=== PATIENT | female | born 1995 | race Caucasian/White ===

== ENCOUNTER → 2021-06-10 07:59 | Outpatient (CLI) | payer OTHER, MEDICAID, SELFPAY ==
[2021-06-10 09:11] LABS: Appearance Urine UA SL CLOUDY; Bilirubin Urine UA NEGATIVE (NEGATIVE); Color Urine UA YELLOW; Glucose Urine UA TRACE g/dL (Negative); Ketones Urine UA NEGATIVE (NEGATIVE); Leukocyte Esterase Urine UA 1+ (NEGATIVE); Nitrite Urine UA NEGATIVE (Negative); Occult Blood Urine UA 1+ (Negative); Protein Urine UA 1+ (Negative); Urobilinogen Urine UA 0.2 E.U./dL (0.2)
[2021-06-10 09:42] LABS: Bacteria Urine Many (>30); RBC Urine 1-5/HPF (0-5/HPF); Squamous Epithelial Cell Urine 10-30 /HPF (0-5/HPF); WBC Urine 5-10/HPF (0-5/HPF)
[2021-06-10 10:15] LABS: Add Manual Diff / Slide Review NO; Basophils Absolute Auto 0 /uL (0-100); Basophils Percent Auto 0.3 % (0-2); Eosinophils Absolute Auto 100 /uL (0-450); Eosinophils Percent Auto 0.6 % (2-4); Hematocrit 35.2 % (36-46); Hemoglobin 11.6 g/dL (12.0-16.0); Lymphocytes Absolute Auto 1500 /uL (1100-4500); Lymphocytes Percent Auto 14.1 % (25-40); Mean Corpuscular Volume 87.8 fL (80-100); Monocytes Absolute Auto 500 /uL (0-900); Monocytes Percent Auto 4.4 % (3-14); Neutrophils Absolute Auto 8600 /uL (1500-7000); Neutrophils Percent Auto 80.6 % (50-75); Platelet Count 197 X10^3/uL (150-400); Red Cell Distribution Width 13.5 % (11.6-14.8); White Blood Cell Count 10.6 X10^3/uL (4.5-11.0)
[2021-06-10 10:48] LABS: GTT (PREG) 1 Hour PP 50gm Dose 143 mg/dL (76-139)
[2021-06-10 17:56] LABS: Hepatitis B Surface Antigen NEGATIVE s/c (NEGATIVE); Rubella Antibody IgG 97.8 IU/mL (>15)
[2021-06-10 18:54] LABS: HIV 1 & 2 Ab/Ag 4th Gen Combo NEGATIVE (NEGATIVE); Hep C Virus Ab w/Reflex Quant NEGATIVE s/c (NEGATIVE)
[2021-06-11 04:21] LABS: RPR Screen Non Reactive (Non Reactive)
[2021-06-11 05:42] LABS: Varicella IgG Antibody <135 index (Immune >165)
== END ==
PROVIDERS: PCP Family Medicine; Referring Provider Family Medicine; Visit Provider Family Medicine
DX: Z34.90 Encounter for supervision of normal pregnancy, unspecified, unspecified trimester (principal)
CPT/HCPCS: 36415; 80055; 81003; 81015; 82950; 86787; 86803; 86850; 86900; 86901; 87086; 87389

== ENCOUNTER → 2021-06-11 07:41 | Outpatient (CLI) | payer OTHER, MEDICAID, SELFPAY ==
[2021-06-11 08:41] LABS: Glucose Fasting Gestational 91 mg/dL (76-95)
[2021-06-11 10:06] LABS: Glucose 1 Hour Gest 162 mg/dL (76-180)
[2021-06-11 10:32] LABS: Glucose 2 Hour Gest 133 mg/dL (76-155)
[2021-06-11 11:02] LABS: Glucose Tol Interp,Gestational INTERPRETATION
[2021-06-11 11:44] LABS: Glucose 3 Hour Gest 138 mg/dL (76-140)
== END ==
PROVIDERS: PCP Family Medicine; Referring Provider Family Medicine; Visit Provider Family Medicine
DX: Z34.90 Encounter for supervision of normal pregnancy, unspecified, unspecified trimester (principal); R73.09 Other abnormal glucose
CPT/HCPCS: 36415; 82951; 82952

== ENCOUNTER → 2021-06-17 12:42 | Outpatient (CLI) | payer OTHER, MEDICAID, SELFPAY ==
[2021-06-17 13:41] LABS: Add Manual Diff / Slide Review NO; Basophils Absolute Auto 0 /uL (0-100); Basophils Percent Auto 0.3 % (0-2); Eosinophils Absolute Auto 100 /uL (0-450); Eosinophils Percent Auto 0.8 % (2-4); Hematocrit 33.6 % (36-46); Hemoglobin 11.2 g/dL (12.0-16.0); Lymphocytes Absolute Auto 1900 /uL (1100-4500); Lymphocytes Percent Auto 17.4 % (25-40); Mean Corpuscular HGB Conc 33.5 % (30-36); Mean Corpuscular Hemoglobin 29.2 PG (26-34); Mean Corpuscular Volume 87.2 fL (80-100); Monocytes Absolute Auto 1000 /uL (0-900); Monocytes Percent Auto 8.9 % (3-14); Neutrophils Absolute Auto 7800 /uL (1500-7000); Neutrophils Percent Auto 72.6 % (50-75); Platelet Count 196 X10^3/uL (150-400); Red Blood Cell Count 3.86 X10^6/uL (4.0-5.2); Red Cell Distribution Width 13.3 % (11.6-14.8); White Blood Cell Count 10.8 X10^3/uL (4.5-11.0)
[2021-06-17 13:59] LABS: Alanine Aminotransferase 12 IU/L (<35); Albumin 3.7 g/dL (3.5-5.0); Albumin Globulin Ratio 1.3 (1.0-2.8); Alkaline Phosphatase 103 U/L (38-126); Aspartate Aminotransferase 21 IU/L (14-36); BUN Creatinine Ratio 14.6 (6-22); Bilirubin Total 0.3 mg/dL (0.2-1.3); Blood Urea Nitrogen 7 mg/dL (7-17); Calcium 9.3 mg/dL (8.4-10.2); Carbon Dioxide 26 mmol/L (22-32); Chloride 106 mmol/L (98-107); Estimated Glomerular Filt Rate > 60.0 mL/min (>60); Globulin 2.9 g/dL (1.7-4.1); Glucose 68 mg/dL (70-100); HEMOLYSIS < 15 (0-50); Potassium 4.2 mmol/L (3.4-5.1); Sodium 136 mmol/L (137-145); Total Protein 6.6 g/dL (6.3-8.2); Uric Acid 4.2 mg/dL (2.5-6.2)
[2021-06-17 14:20] LABS: Creatinine Urine Random 149.5 mg/dL
[2021-06-17 14:23] LABS: Protein (Total) Urine Random < 5 mg/dL (0-12); Protein Creatinine Ratio Urine 0.03 GRAM/24H
== END ==
PROVIDERS: PCP Family Medicine; Referring Provider Family Medicine; Visit Provider Family Medicine
DX: O09.299 Supervision of pregnancy with other poor reproductive or obstetric history, unspecified trimester (principal)
CPT/HCPCS: 36415; 80053; 82570; 84156; 84550; 85025

== ENCOUNTER → 2021-06-19 10:57 | Outpatient (CLI) | payer OTHER, MEDICAID, SELFPAY ==
[2021-06-19 16:07] LABS: Collection Time Urine 24 Hours; Protein (Total) Urine Random 11 mg/dL (0-12); Total Protein 24 Hour Urine 275 mg/day (42-225); Total Volume Urine 2500 mL
== END ==
PROVIDERS: PCP Family Medicine; Referring Provider Family Medicine; Visit Provider Family Medicine
DX: O09.299 Supervision of pregnancy with other poor reproductive or obstetric history, unspecified trimester (principal)
CPT/HCPCS: 84156

== ENCOUNTER → 2021-07-08 11:36 | Outpatient (CLI) | payer OTHER, MEDICAID, SELFPAY ==
[2021-07-09 16:16] LABS: Strep Grp B PCR NEG for Grp B Strep
--- NOTE | 2021-07-11 23:38 | P.TNLD_ITS ---
Visit Information Visit Information Date of evaluation: 07/11/21 Primary OB Provider: Aracelis Jack Reason for Evaluation: Yes non-stress test Comments/Additional reasons for admission: This patient is a 26yo P2 @37 weeks gestation with a history of preeclampsia, sent to L&D after calling after hours with a headache and RUQ pain. Reports good movement, contractions 10x daily, no LOF or VB, no visual changes. Vital Signs Vital Signs: 125/56, HR 96 PFSH Medical History (Updated 06/15/21 @ 22:51 by Yvonne Eid) Anemia (~2004) Anxiety (~2017) Asthma (~2002) Chronic back pain (~2017) Depression Hearing loss Hypertension affecting Preeclampsia Surgical History (Updated 06/15/21 @ 22:51 by Yvonne Eid) Anesthesia Encounter for cholecystectomy (~02/11/19) History of dilatation and curettage (~10/02/20) History of wisdom tooth extraction (~06/02/18) Family History (Updated 06/15/21 @ 22:52 by Yvonne Eid) Mother Fibrocystic breast Grandmother Hypertension Grandfather Cancer Social History marital status: unmarried,living together number of children: 2 household members: significant other and children lives independently: Yes pets and animals: Yes (cat - aware of Toxoplasmosis) occupational status: unemployed current occupational exposures/hazards: No seatbelt use: always water heater temp set < 120 deg: Yes working smoke detector in home: Yes fire extinguisher in home: Yes carbon monox detector in home: Yes firearms in home: No do you feel safe at home: Yes Smoking Status: Former smoker second hand exposure: No alcohol intake: former substance use type: does not use well-balanced diet: daily or most days daily servings fruits/ve-4 caffeine: Yes (under 160 per day) Type(s) of exercise: walking and normal ROM and activity (2 small cheildren) Review of Systems Constitutional Constitutional: Reports system reviewed and no additional complaints, except as documented Evaluation Evaluation Baseline heart rate: 125 Variability: Average (6-10) monitor accelerations: Present Monitor Decelerations: Absent Diagnosis, Plan/Disposition Plan/Disposition Plan: Patient normotensive, preeclampsia labs well within normal limits and headache resolved. status reassuring, and RUQ pain is over rib cage. Patient discharged home with [facility] and labor precautions, to follow up in AM with primary OB. OB Disposition: home
== END ==
PROVIDERS: PCP Family Medicine; Visit Provider Family Medicine
DX: Z3A.36 36 weeks gestation of pregnancy (principal)
CPT/HCPCS: 87653

== ENCOUNTER 2021-07-11 22:07 | Outpatient (CLI) | payer OTHER, MEDICAID, SELFPAY ==
[2021-07-11 22:44] LABS: Add Manual Diff / Slide Review NO; Basophils Absolute Auto 100 /uL (0-100); Basophils Percent Auto 0.6 % (0-2); Eosinophils Absolute Auto 100 /uL (0-450); Eosinophils Percent Auto 0.7 % (2-4); Hematocrit 33.7 % (36-46); Hemoglobin 11.3 g/dL (12.0-16.0); Lymphocytes Absolute Auto 2300 /uL (1100-4500); Lymphocytes Percent Auto 20.8 % (25-40); Mean Corpuscular HGB Conc 33.7 % (30-36); Mean Corpuscular Hemoglobin 29.2 PG (26-34); Mean Corpuscular Volume 86.7 fL (80-100); Monocytes Absolute Auto 800 /uL (0-900); Monocytes Percent Auto 7.4 % (3-14); Neutrophils Absolute Auto 7700 /uL (1500-7000); Neutrophils Percent Auto 70.5 % (50-75); Platelet Count 189 X10^3/uL (150-400); Red Blood Cell Count 3.89 X10^6/uL (4.0-5.2); Red Cell Distribution Width 13.5 % (11.6-14.8)
[2021-07-11 22:53] LABS: Aspartate Aminotransferase 21 IU/L (14-36); BUN Creatinine Ratio 18.6 (6-22); Blood Urea Nitrogen 8 mg/dL (7-17); Estimated Glomerular Filt Rate > 60.0 mL/min (>60); Uric Acid 4.6 mg/dL (2.5-6.2)
[2021-07-11 22:57] LABS: Creatinine Urine Random 196.8 mg/dL; Protein (Total) Urine Random < 5 mg/dL (0-12); Protein Creatinine Ratio Urine 0.02 GRAM/24H
== END 2021-07-11 23:27 | disposition home or self-care (01) ==
LOC: OB 07-14 12:37
PROVIDERS: PCP Family Medicine; Referring Provider Obstetrics & Gynecology; Visit Provider Obstetrics & Gynecology
DX: O26.893 Other specified pregnancy related conditions, third trimester (principal); R03.0 Elevated blood-pressure reading, without diagnosis of hypertension; R10.11 Right upper quadrant pain; R51.9 Headache, unspecified; Z3A.37 37 weeks gestation of pregnancy
CPT/HCPCS: 36415; 59025; 82570; 84156; 84450; 84550; 85025; G0378; G0379

== ENCOUNTER 2021-07-30 19:25 | Observation (INO) | payer OTHER, MEDICAID, SELFPAY ==
--- NOTE | 2021-07-30 20:18 | P.TNLD_ITS ---
Visit Information Visit Information Date of evaluation: 07/30/21 Primary OB Provider: Deb Mccloud On-call OB Provider: Ishmael Varela Reason for Evaluation: Yes other Comments/Additional reasons for admission: Keira is a 26 yo ANGEL 08/01/2021 @ 39+5 wks EGA who noted blood pressures in the range of 140/90 at home especially when sitting or standing and was asked to come to the [facility] for evaluation. Patient has a postero-basilar headache which is not unusual but she denies any visual disturbances, pounding headache, or right upper quadrant pain. Vital Signs Vital Signs: BP: 118/69; 129/73; 122/65 supine BP: 140's/90's sitting and standing [facility] Medical History (Updated 07/30/21 @ 22:01 by Ishmael Varela MD) Anemia (~2004) Anxiety (~2017) Asthma (~2002) Chronic back pain (~2017) Depression Hearing loss Hypertension affecting Preeclampsia Surgical History (Updated 06/15/21 @ 22:51 by Yvonne Eid) Anesthesia Encounter for cholecystectomy (~02/11/19) History of dilatation and curettage (~10/02/20) History of wisdom tooth extraction (~06/02/18) Family History (Updated 06/15/21 @ 22:52 by Yvonne Eid) Mother Fibrocystic breast Grandmother Hypertension Grandfather Cancer Social History marital status: unmarried,living together number of children: 2 household members: significant other and children lives independently: Yes pets and animals: Yes (cat - aware of Toxoplasmosis) occupational status: unemployed current occupational exposures/hazards: No seatbelt use: always water heater temp set < 120 deg: Yes working smoke detector in home: Yes fire extinguisher in home: Yes carbon monox detector in home: Yes firearms in home: No do you feel safe at home: Yes Smoking Status: Former smoker second hand exposure: No alcohol intake: former substance use type: does not use well-balanced diet: daily or most days daily servings fruits/ve-4 caffeine: Yes (under 160 per day) Type(s) of exercise: walking and normal ROM and activity (2 small cheildren) Objective Labs Result Diagrams: 07/30/21 20:46 07/30/21 20:46 Evaluation Evaluation Baseline heart rate: 130 Variability: Moderate (11-25) monitor accelerations: Present Monitor Decelerations: Absent Category of Tracing: Reactive Status: Category l Diagnosis, Plan/Disposition Final Diagnosis (1) History of pre-eclampsia in prior , currently : Status: Acute (2) Hypertension affecting : Status: Acute Problem details: BP's elevate primarily with sitting/standing (3) : Status: Acute Plan/Disposition Plan: At present the patient's blood pressure here (supine) remains in the normal range and there is no laboratory evidence preeclampsia. Patient has an appointment with Dr. Mccloud or in her office tomorrow morning and at that time will discuss induction strategies. Patient tentatively added to the induction schedule to come in PM for 07/31 for ripening and induction 08/01/2021. Counselled re: signs/symptoms of or severe GHTN/PEC. Patient will go to BR overnight and report any blood pressures at or higher than 150/100 or signs/symptoms of severe GHTN/PEC. OB Disposition: home
[2021-07-30 21:03] LABS: Add Manual Diff / Slide Review NO; Basophils Absolute Auto 0 /uL (0-100); Basophils Percent Auto 0.4 % (0-2); Eosinophils Absolute Auto 100 /uL (0-450); Eosinophils Percent Auto 0.5 % (2-4); Hematocrit 33.7 % (36-46); Hemoglobin 11.5 g/dL (12.0-16.0); Lymphocytes Absolute Auto 1900 /uL (1100-4500); Lymphocytes Percent Auto 17.2 % (25-40); Mean Corpuscular HGB Conc 34.3 % (30-36); Mean Corpuscular Hemoglobin 29.7 PG (26-34); Mean Corpuscular Volume 86.5 fL (80-100); Monocytes Absolute Auto 900 /uL (0-900); Monocytes Percent Auto 7.7 % (3-14); Neutrophils Absolute Auto 8400 /uL (1500-7000); Neutrophils Percent Auto 74.2 % (50-75); Platelet Count 185 X10^3/uL (150-400); Red Blood Cell Count 3.89 X10^6/uL (4.0-5.2); Red Cell Distribution Width 13.5 % (11.6-14.8); White Blood Cell Count 11.3 X10^3/uL (4.5-11.0)
[2021-07-30 21:09] LABS: Alanine Aminotransferase 13 IU/L (<35); Albumin 3.8 g/dL (3.5-5.0); Albumin Globulin Ratio 1.1 (1.0-2.8); Alkaline Phosphatase 139 U/L (38-126); Aspartate Aminotransferase 23 IU/L (14-36); BUN Creatinine Ratio 15.7 (6-22); Bilirubin Total 0.3 mg/dL (0.2-1.3); Blood Urea Nitrogen 8 mg/dL (7-17); Calcium 9.2 mg/dL (8.4-10.2); Carbon Dioxide 22 mmol/L (22-32); Chloride 107 mmol/L (98-107); Estimated Glomerular Filt Rate > 60 mL/min (>60); Globulin 3.4 g/dL (1.7-4.1); Glucose 95 mg/dL (70-100); HEMOLYSIS < 15 (0-50); Potassium 3.8 mmol/L (3.4-5.1); Sodium 137 mmol/L (137-145); Total Protein 7.2 g/dL (6.3-8.2); Uric Acid 4.9 mg/dL (2.5-6.2)
[2021-07-30 21:15] LABS: Creatinine Urine Random 176.8 mg/dL; Protein (Total) Urine Random 7 mg/dL (0-12); Protein Creatinine Ratio Urine 0.03 GRAM/24H
== END 2021-07-30 22:00 | disposition home or self-care (01) ==
LOC: LABOR 19:28
PROVIDERS: Admitting Provider Obstetrics & Gynecology; PCP Family Medicine; Referring Provider Obstetrics & Gynecology; Visit Provider Obstetrics & Gynecology
DX: O13.3 Gestational [pregnancy-induced] hypertension without significant proteinuria, third trimester (principal); Z3A.39 39 weeks gestation of pregnancy
CPT/HCPCS: 36415; 59025; 59050; 80053; 82570; 84156; 84550; 85025; G0378; G0379

== ENCOUNTER 2021-07-31 19:02 | Inpatient (IN) | payer OTHER, MEDICAID, SELFPAY ==
[2021-07-31 20:22] LABS: Add Manual Diff / Slide Review NO; Basophils Absolute Auto 0 /uL (0-100); Basophils Percent Auto 0.4 % (0-2); Eosinophils Absolute Auto 100 /uL (0-450); Eosinophils Percent Auto 0.7 % (2-4); Hematocrit 32.9 % (36-46); Hemoglobin 11.1 g/dL (12.0-16.0); Lymphocytes Absolute Auto 1700 /uL (1100-4500); Lymphocytes Percent Auto 18.9 % (25-40); Mean Corpuscular HGB Conc 33.6 % (30-36); Mean Corpuscular Hemoglobin 29.5 PG (26-34); Mean Corpuscular Volume 87.8 fL (80-100); Monocytes Absolute Auto 800 /uL (0-900); Monocytes Percent Auto 9.1 % (3-14); Neutrophils Absolute Auto 6400 /uL (1500-7000); Neutrophils Percent Auto 70.9 % (50-75); Platelet Count 184 X10^3/uL (150-400); Red Blood Cell Count 3.74 X10^6/uL (4.0-5.2); Red Cell Distribution Width 13.4 % (11.6-14.8); White Blood Cell Count 9.1 X10^3/uL (4.5-11.0)
[2021-07-31 20:31] LABS: Alanine Aminotransferase 15 IU/L (<35); Albumin 3.7 g/dL (3.5-5.0); Albumin Globulin Ratio 1.2 (1.0-2.8); Alkaline Phosphatase 130 U/L (38-126); Aspartate Aminotransferase 27 IU/L (14-36); Bilirubin Total 0.3 mg/dL (0.2-1.3); Blood Urea Nitrogen 8 mg/dL (7-17); Carbon Dioxide 22 mmol/L (22-32); Chloride 108 mmol/L (98-107); Estimated Glomerular Filt Rate > 60 mL/min (>60); Globulin 3.2 g/dL (1.7-4.1); Glucose 96 mg/dL (70-100); HEMOLYSIS < 15 (0-50); Potassium 3.7 mmol/L (3.4-5.1); Sodium 137 mmol/L (137-145); Total Protein 6.9 g/dL (6.3-8.2)
[2021-07-31 20:51] LABS: Creatinine Urine Random 205.8 mg/dL; Protein (Total) Urine Random 5 mg/dL (0-12); Protein Creatinine Ratio Urine 0.02 GRAM/24H
[2021-07-31 21:07] LABS: COVID19 -Nasal RAPID Negative (Negative)
[2021-07-31] MEDS: ACETAMINOPHEN 325 MG TABLET 650 MG PO (22:10)
[2021-07-31 22:48] VITALS: BP 124/64
--- NOTE | 2021-08-01 04:26 | P.HPOB_ITS ---
OB HPI Date/Time Date of admission: 07/31/21 Date Patient Seen: 08/01/21 Time Patient Seen: 05:52 History of Present Condition Chief complaint: states induction ANGEL Calculator Estimated Delivery Date Method Current WG Current Estimate 08/01/21 Manual 40w 0d Final ANGEL - AURELIO Other Estimates 08/01/21 Ultrasound #1 40w 0d 07/22/21 Ultrasound #2 41w 3d Estimated Gestational Age (weeks): 40w0d : 4 Para: 2 Narrative: Pt is a 26yo at 40w0d who presented for IOL for elevated blood pressures. The pt reports that her blood pressures at home have been more elevated at home recently, up to the 150s/90s. She has also had a persistent headache since last evening and worsening edema in her legs and hands. The headache has resolved this morning. She denies any RUQ pain or significant vision changes. She denies any vaginal bleeding, contractions, or LOF. Her baby has been moving regularly. The pt was late to care, initiating in the third trimester. She had pre-eclampsia in her first . She was not on Aspirin during her due to her late presentation to care. care: limited care, initiated at week # (33) and pounds weight gain (38) Dating criteria OB: based on 1st trimester US only Ultrasounds: normal 1st trimester US and normal mid trimester US Obstetrical complications: none Medical complications OB: none Indications Indication for induction OB: gestational HTN/pre-eclampsia Preadmission Labs Last OB Lab Results: Blood Type O Positive 07/31/21 22:45 07/31/21 Antibody Screen Negative 07/31/21 22:45 07/31/21 Hematocrit 32.9 % (36-46) L 07/31/21 20:06 07/31/21 Hemoglobin 11.1 g/dL (12.0-16.0) L 07/31/21 20:06 07/31/21 Hepatitis B Surface Antigen Negative s/c (NEGATIVE) 06/10/21 09:16 06/10/21 Hepatitis C Antibody Negative s/c (NEGATIVE) 06/10/21 09:16 06/10/21 Rubella Antibody 97.8 IU/mL (>15) 06/10/21 09:16 06/10/21 Varicella-Zoster IgG Antibody <135 index (Immune >165) L 06/10/21 09:16 06/10/21 Glucose 1 Hour 143 mg/dL (76-139) H 06/10/21 09:16 06/10/21 Group B Streptococcus (PCR) Neg for grp b strep 07/08/21 11:36 07/08/21 Glucose Tolerance Testing: Fasting (91), 1 hr (162), 2 hr (133) and 3 hr (138) -: Urine: negative External Labs -: Urine: negative Prior (ies) Past Pregnancies Del. Date GA/Weeks Labor Lgth Wt Sex Route Outcome Anesthesia Place Delv Breastfeed Preg Comp Name 08/03/17 40 48 7 lb 2 oz Female vaginal live - full term epidu ral [facility] 2 mo pre-eclampsia Aria 03/22/20 40 29 8 lb 7 oz Female vaginal live - full ter m epidural [place] 14 mon [place] 10/02/20 9 spontaneous spontaneous Delivery Date: 08/03/17 Last Updated by: Ayala Jaramillo R.N. Lip tie, tongue tie, sacral dimple Delivery Date: 03/22/20 Last Updated by: Ayala Jaramillo R.N. [facility] - OP, Induced Delivery Date: 10/02/20 Last Updated by: Ayala Jaramillo R.N. D & C Evaluation Evaluation Baseline heart rate: 120 Variability: Moderate (11-25) monitor accelerations: Present Monitor Decelerations: Absent Category of Tracing: Reactive Dilation (cm): 2.5 Effacement (%): 30 Dilation: 1-2 cm Effacement: 0-30% station: -2 Position of cervix: anterior Consistency: soft Shannon score: 6 [facility] Medical History (Updated 08/01/21 @ 05:30 by Deb Mccloud MD) Anemia (~2004) Anxiety (~2017) Asthma (~2002) Chronic back pain (~2017) Depression Hearing loss Hypertension affecting Preeclampsia Surgical History (Updated 06/15/21 @ 22:51 by Yvonne Eid) Anesthesia Encounter for cholecystectomy (~02/11/19) History of dilatation and curettage (~10/02/20) History of wisdom tooth extraction (~06/02/18) Family History (Updated 06/15/21 @ 22:52 by Yvonne Eid) Mother Fibrocystic breast Grandmother Hypertension Grandfather Cancer Social History marital status: unmarried,living together number of children: 2 household members: significant other and children lives independently: Yes pets and animals: Yes (cat - aware of Toxoplasmosis) occupational status: unemployed current occupational exposures/hazards: No seatbelt use: always water heater temp set < 120 deg: Yes working smoke detector in home: Yes fire extinguisher in home: Yes carbon monox detector in home: Yes firearms in home: No do you feel safe at home: Yes Smoking Status: Former smoker second hand exposure: No alcohol intake: former substance use type: does not use well-balanced diet: daily or most days daily servings fruits/ve-4 caffeine: Yes (under 160 per day) Type(s) of exercise: walking and normal ROM and activity (2 small cheildren) Meds Home Medications and Allergies Home Medications Medication Instructions Recorded Confirmed Type cholecalciferol (vitamin D3) 10 #0 06/17/17 07/31/21 History mcg (400 unit) capsule (Vitamin D3) ferrous sulfate 325 mg (65 mg #0 06/17/17 07/31/21 History iron) tablet (Iron (ferrous sulfate)) vitamin-ferrous fumarate #0 06/17/17 07/31/21 History 65 mg iron-folic acid 1 mg capsule (Mynatal) Allergies Allergy/AdvReac Type Severity Reaction Status Date / Time No Known Allergies Allergy Uncoded 07/31/21 09:36 OB Exam Narrative Exam Narrative: Gen: NAD, sitting comfortably in bed, appears well CV: RRR, no murmurs Resp: clear to auscultation bilaterally Abd: soft, nontender, gravid Ext: 1+ edema bilateral LE Neuro: no clonus, 1+ patellar reflexes Objective Labs Result Diagrams: 07/31/21 20:06 07/31/21 20:06 Labs: Laboratory Results - last 24 hr 07/31/21 07/31/21 07/31/21 20:00 20:06 20:06 WBC 9.1 RBC 3.74 L Hgb 11.1 L Hct 32.9 L MCV 87.8 MCH 29.5 MCHC 33.6 RDW 13.4 Plt Count 184 Neut % (Auto) 70.9 Lymph % (Auto) 18.9 L [place] % (Auto) 9.1 Eos % (Auto) 0.7 L Baso % (Auto) 0.4 Neut # (Auto) 6400 Lymph # (Auto) 1700 [place] # (Auto) 800 Eos # (Auto) 100 Baso # (Auto) 0 Sodium Potassium Chloride Carbon Dioxide BUN Creatinine Estimated GFR BUN/Creatinine Ratio Glucose Calcium Total Bilirubin AST ALT Alkaline Phosphatase Total Protein Albumin Globulin Albumin/Globulin Ratio U Random Total Protein Urine Creatinine Protein/Creatinin Ratio SARS-CoV-2 (PCR) Negative Blood Type O Positive Antibody Screen Negative 07/31/21 07/31/21 07/31/21 20:06 20:15 22:45 WBC RBC Hgb Hct MCV MCH MCHC RDW Plt Count Neut % (Auto) Lymph % (Auto) [place] % (Auto) Eos % (Auto) Baso % (Auto) Neut # (Auto) Lymph # (Auto) [place] # (Auto) Eos # (Auto) Baso # (Auto) Sodium 137 Potassium 3.7 Chloride 108 H Carbon Dioxide 22 BUN 8 Creatinine 0.57 Estimated GFR > 60 BUN/Creatinine Ratio 14.0 Glucose 96 Calcium 9.0 Total Bilirubin 0.3 AST 27 ALT 15 Alkaline Phosphatase 130 H Total Protein 6.9 Albumin 3.7 Globulin 3.2 Albumin/Globulin Ratio 1.2 U Random Total Protein 5 Urine Creatinine 205.8 Protein/Creatinin Ratio 0.02 SARS-CoV-2 (PCR) Blood Type O Positive Antibody Screen Negative Assessment and Plan Assessment and Plan Assessment and Plan narrative: Pt is a 26yo at 40w0d who presented for IOL due to rising BPs/gestational hypertension in the setting of hx of pre-eclampsia with her first child. BPs since admission have remained in acceptable range, however due to hx will proceed with IOL. Pt was not on Aspirin during due to late presentation to care. Pt with a persistent headache. Admission labs normal without evidence pre-eclampsia/HELLP. GBS negative, Rh positive. Shannon score currently 6. - Expectant management, anticipate - FHT reassuring overnight - Continue to monitor BPs closely - Due to staffing overnight, unable to start IOL. Plan for cervidil when able b ased on staffing.
[2021-08-01] MEDS: DINOPROSTONE VAG (CERVIDIL) 10 MG VAG (10:36)
--- NOTE | 2021-08-01 11:32 | P.PNOB_ITS ---
Date/Time Date Patient Seen: 08/01/21 Time Patient Seen: 11:32 Pain Control Pain control: tolerating well Status status: Category l Heart Rate Baseline: 130 Monitor Accelerations: Present Monitor Decelerations: Absent Monitor Variability: Moderate Assessment and Plan Comments: Pt is a 26yo at 40w0d who presented for IOL due to rising BPs/gestational hypertension in the setting of hx of pre-eclampsia with her first child.? BPs remain in good range. Pt was not on Aspirin during due to late presentation to care.? Admission labs normal without evidence pre- eclampsia/HELLP.? GBS negative, Rh positive.? Shannon score 6. - Expectant management, anticipate - FHT reassuring - Continue to monitor BPs closely - Cervidil place at 10:36am. Will remain in place for maximum 12 hrs - Desires epidural when in active labor - GBS negative, no antibiotic prophylaxis indicated
[2021-08-01] MEDS: ACETAMINOPHEN 325 MG TABLET 650 MG PO (13:36)
[2021-08-01] MEDS: LACTATED RINGERS 1,000 ML 100 ML IV ×3 (15:21→19:23)
[2021-08-01] MEDS: OXYTOCIN PREMIX 30 UNIT/500 ML PLAST..BAG IV (16:52)
[2021-08-01] MEDS: FENT 2MCG/ML BUPIV 0.125% EPI 200 MCG/100 ML PLAST..BAG 10 MCG EPIDURAL (19:01)
[2021-08-02] MEDS: FENT 2MCG/ML BUPIV 0.125% EPI 200 MCG/100 ML PLAST..BAG 10 MCG EPIDURAL (03:03)
--- NOTE | 2021-08-02 10:41 | PM.OBPNLAB ---
Date/Time Date Patient Seen: 08/02/21 Time Patient Seen: 08:00 Pain Control Pain control: epidural Pelvic Exam Dilation (cm): 5.5 Effacement (%): 75 station: -2 Amniotic membrane status: Ruptured Comments: After informed consent, AROM performed with production of clear fluid. Contractions Pitocin rate (mU/min): 21 Contraction frequency (min): 3 Contraction duration (min): 1 Contraction pattern: Regular Contraction intensity: Mild Status status: Category l Heart Rate Baseline: 140 Monitor Accelerations: Present Monitor Decelerations: Absent Monitor Variability: Moderate Assessment and Plan Comments: Pt is a 26yo at 40w0d who presented for IOL due to rising BPs/gestational hypertension in the setting of hx of pre-eclampsia with her first child.? BPs remain in good range.? Pt was not on Aspirin during due to late presentation to care.? Admission labs normal without evidence pre-eclampsia/HELLP.? GBS negative, Rh positive.? Received Cervidil yesterday, followed by Pitocin. AROM now performed with clear fluid present. - Expectant management, anticipate - FHT reassuring - Continue to monitor BPs closely - Epidural in place for pain control, working well - GBS negative, no antibiotic prophylaxis indicated - Continue pitocin. If no significant change after ROM in 1 hour, will plan for pitocin break for 1 hour.
--- NOTE | 2021-08-02 12:07 | PM.OBPRVD ---
Events: Induced HTN Labor & Delivery Delivery date: 08/02/21 Intrapartal Events: None Cervical ripening method: per Cervidil protocol Induction method: per pitocin protocol Delivery augmentation: rupture of membranes Delivery monitor: external FHT Route of delivery: Episiotomy description: None L&D Laceration Description: Perineal - 2nd Degree Delivery repair: chromic Estimated blood loss (mL): 400 Anesthesia Type: Epidural Complications: None Narrative: PROCEDURE: at 39w6d presented for IOL for gestational hypertension and was admitted to Labor and Delivery. The patient progressed through the 1st stage over 24 hours. The pt received cervidil for induction, followed by pitocin. Pain was controlled with an epidural. AROM was performed with production of clear fluid. The pt then rapidly progressed to complete dilation. The patient progressed through the 2nd stage over 3 minutes and delivered a viable male infant with APGARs 7/8 at 11:17 via without complications. The cord was cut and clamped immediately after delivery due to the baby appearing very pale and with decreased tone, however this improved quickly at the warmer with vigorous stimulation. The perineum and vagina were inspected with small 2nd degree perineal laceration repaired with 2-O Chromic. PREPROCEDURE DIAGNOSIS: Intrauterine at 40w1d Gestational hypertension GBS negative RH positive POSTPROCEDURE DIAGNOSIS: Intrauterine at 40w1d, delivered Same as preprocedure Baby 1: Infant gender: Male Presentation: vertex Position: Right Occiput Anterior Placenta delivery description: Spontaneous Cord Vessel Description: 3 Vessels and Nuchal Cord score (1 min): 7 score (5 min): 8 weight: 9 lb 5.032 oz Plan for aftercare: Routine care
[2021-08-02] MEDS: ACETAMINOPHEN 325 MG TABLET 650 MG PO ×2 (14:47→22:10)
[2021-08-02] MEDS: IBUPROFEN 600 MG TABLET PO ×2 (14:47→22:07)
[2021-08-03] MEDS: DERMOPLAST SPRAY 20% 60 ML 1 SPRAY TOP (06:18)
[2021-08-03] MEDS: LANOLIN OINT 7 GM 1 APPLIC TOP (06:19)
[2021-08-03 07:08] LABS: Hemoglobin 10.7 g/dL (12.0-16.0)
[2021-08-03] MEDS: PRENATAL VIT,CALC/IRON/FOLIC 1 TABLET 1 TAB PO (09:09)
[2021-08-03] MEDS: DOCUSATE 100 MG CAPSULE PO (09:09)
[2021-08-03] MEDS: IBUPROFEN 600 MG TABLET PO (09:10)
--- NOTE | 2021-08-03 09:37 | P.DS_ITS ---
Discharge Providers Provider Date of admission: 07/31/21 19:02 Discharge Date: 08/03/21 Primary care physician: Deb Mccloud MD Consults: 08/03/21 12:06 Consult to Vertical Contour Band Saw Operator Routine Comment: Discharge provider: Deb Mccloud MD Summary Hospital Course Date Patient Seen: 08/03/21 Time Patient Seen: 09:15 Diagnoses: 40w1d gestation Gestational hypertension GBS negative RH positive Hospital Course: The pt presented for IOL for gestational hypertension.? She received Cervidil for induction, followed by Pitocin.? She received an epidural for pain control.? AROM was performed with production of clear fluid.? She progressed to complete and had an of a viable baby boy on 08/02/21 without complications.? A small second degree perineal laceration was then repaired.? , there were no complications.? The pts BPs remained in good range throughout her hospitalization.? At the time of discharge she was voiding, ambulating, and passing flatus without difficulty. Her pain was well controlled. She was with good latch. Her lochia was decreasing appropriately. She will f/u in 6 weeks for check. Her partner plans on vasectomy for contraception. Peripartum Data Delivery Method: Natural Vaginal Laceration Description: Perineal - 2nd Degree Episiotomy description: None Procedures: Spontaneous vaginal delivery complications: none 1: Gender: Male Disposition of : home Discharge Diagnosis (1) Gestational hypertension: Status: Acute (2) Spontaneous vaginal delivery: Status: Acute Status at Discharge Cognitive/behavioral status at discharge: oriented Functional status at discharge: independent ambulation Overall status at discharge: patient is progressing back to baseline Time Spent with Patient Time attestation: Total time spent providing and/or coordinating discharge services: Objective Labs Result Diagrams: 08/03/21 06:49 07/31/21 20:06 Labs: Laboratory Results - last 24 hr 08/03/21 06:49 Hgb 10.7 L Hct 32.0 L Exam Narrative Exam Narrative: Gen: NAD, sitting comfortably in bed, appears well CV: RRR, no murmurs Resp: clear to auscultation bilaterally Abd: soft, appropriately tender, fundus firm and below the umbilicus, nondistended Ext: no edema Discharge Plan Discharge Plan Patient Disposition: Home Discharge orders & Medications Prescriptions: New acetaminophen 325 mg Tablet 650 mg PO Q6HR PRN (Reason: Pain, Mild (1-3)) Qty: 30 0RF docusate sodium 100 mg Capsule 100 mg PO DAILY Qty: 30 0RF ibuprofen 600 mg Tablet 600 mg PO Q6HR PRN (Reason: Pain, Mild (1-3)) Qty: 30 0RF Prenatabs Rx 29 mg iron- 1 mg Tablet 1 tab PO DAILY Qty: 30 0RF Continued cholecalciferol (vitamin D3) [Vitamin D3] 400 UNIT capsule Qty: 0 0RF Mynatal 1 EACH capsule Qty: 0 0RF ferrous sulfate [Iron (ferrous sulfate)] 325 MG tablet Qty: 0 0RF Follow up/Referrals: Deb Mccloud MD [Primary Care Provider] - 6 Weeks (Pt instructed to call the clinic for appointment) Diet/Activity/Treatments Diet: Diet as Tolerated and Regular Skin/Wound/Dressing Care Report to your healthcare provider any signs of infection, such as:: chills, fever, increased pain and unusual drainage Visit Report/Discharge Packet Instructions: DI for Labor and Delivery, Vaginal Stand Alone Forms: Discharge: Care Visit Report Forms: Patient Portal/API, Stroke Signs & Symptoms Discharge Data Primary Care Provider: Deb Mccloud Discharges patient from system. Discharge Date/Time: 08/03/21 12:45
[2021-08-03 12:03] VITALS: BP 124/64; PULSE 84; RESP 17; TEMP 36.6
== END 2021-08-03 12:45 | disposition home or self-care (01) | DRG 560 ==
PROVIDERS: Admitting Provider Family Medicine; PCP Family Medicine; Referring Provider Family Medicine; Visit Provider Family Medicine
DX: O13.4 Gestational [pregnancy-induced] hypertension without significant proteinuria, complicating childbirth (principal); Z3A.40 40 weeks gestation of pregnancy; Z37.0 Single live birth; O70.1 Second degree perineal laceration during delivery; Z20.822 Contact with and (suspected) exposure to COVID-19
CPT/HCPCS: 01967; 36415; 59025; 59050; 59409; 80053; 82570; 84156; 84550; 85014; 85018; 85025; 86850; 86900; 86901; 87635; C9803; G0378; G0379; J2590

== ENCOUNTER → 2021-11-12 12:43 | Outpatient (CLI) | payer OTHER, MEDICAID, SELFPAY ==
[2021-11-12 13:48] LABS: Influenza A - CEPHEID Flu A NEGATIVE (NEGATIVE); Influenza B - CEPHEID Flu B NEGATIVE (NEGATIVE)
[2021-11-12 13:51] LABS: COVID-19 CEPHEID PCR (VTM/NP) Negative (Negative)
== END ==
PROVIDERS: PCP Family Medicine; Visit Provider Physician Assistant
DX: R11.10 Vomiting, unspecified (principal); R19.7 Diarrhea, unspecified; Z20.822 Contact with and (suspected) exposure to COVID-19
CPT/HCPCS: 0240U; 81025

== ENCOUNTER 2022-04-24 11:42 | Day surgery (SDC) | payer OTHER, MEDICAID, SELFPAY ==
[2022-04-18 13:25] VITALS: BMI 35.5
--- NOTE | 2022-04-24 | PATH_ITS ---
[facility] Accession Number: [id number] . 01 Material submitted: . fallopian tube - BILATERAL FALLOPIAN TUBES . 01 Diagnosis: Bilateral Fallopian Tubes, Excision: Benign fallopian tubes. Negative for atypia and malignancy. MRV 04/28/2022 1443 Local . 01 Electronically signed: . Paulie Titus MD, Pathologist NPI- [id number] . 01 Gross description: . The specimen is received in formalin, labeled with the patient's name, , and bilateral fallopian tubes, and consists of two unoriented fimbriated fallopian tubes measuring 5.4 x 0.8 cm and 4.5 x 0.9 cm, respectively. The longer fallopian tube has congested smooth serosa with no cystic structures identified. Sectioning reveals an unremarkable stellate lumen. The shorter fallopian tube has congested smooth serosa with no cystic structures identified. Sectioning reveals an unremarkable stellate lumen. Corporate Communications Manager sections to include cross sections and entire bisected fimbriae are submitted as follows: A1: Longer fallopian tube. A2: [place] fallopian tube. ([id number]) /[facility] 04/26/2022 1624 Local . 01 Pathologist provided ICD-10: Z30.2 . 01 CPT . 315852 Specimen Comment: A courtesy copy of this report has been sent to [phone] Performed at: 01 [facility] [address] [place] [address], [place], [place] [id number] MD Jose Angel Fontaine MD Phone: [phone]
[2022-04-24 12:49] LABS: COVID19 -Nasal RAPID Negative (Negative)
[2022-04-24 13:02] VITALS: BP 129/75; PULSE 68; RESP 16; TEMP 36.4; O2SAT 99; BMI 35.5
[2022-04-24] MEDS: LACTATED RINGERS 1,000 ML 42 ML IV (13:14)
--- NOTE | 2022-04-24 15:02 | PM.PREOP ---
Pre-operative Note COVID-19 COVID-19 status: Negative Result date/Date tested (Pos, Neg/Pending): 04/24/22 Criteria for continued procedure: Non-surgical alternatives not available or appropriate per current SOC Interval Note History & Physical reviewed/Exam performed by Physician: Yes Changes to H&P: No
[2022-04-24] MEDS: SCOPOLAMINE 1 PATCH TOP (15:27)
--- NOTE | 2022-04-24 15:47 | PM.GYNOP.1 ---
Operative Date/Time/Diagnoses Date of procedure: 04/24/22 Time of procedure: 16:00 Pre-op diagnosis: Request for sterilization Post-op diagnosis: same Procedure & Clinicians Procedure: Procedures Operation Date: 04/24/22 13:30 Actual Procedure Side Surgeon p Laparoscopic Salpingectomy Bilateral Ishmael Varela MD Indications: Keira is a 26-year-old [id number], LMP starting today who presents to discuss elective sterilization.? Patient is absolutely certain she does not wish to have anymore children as having 3 children has been her life goal insofar as reproduction.? Her life partner is supportive of her decision but does not wish to consider vasectomy.? Patient is aware of contraceptive options including long-acting contraceptives but would prefer to pursue sterilization.? After consideration of all options the patient has decided to proceed with laparoscopic bilateral salpingectomy for sterilization and presents today for her scheduled surgery. Surgeon: Ishmael Varela Anesthesia Type: General Operative Notes Findings: Normal pelvis. Closure Type: primary Specimen(s): left tube and right tube Estimated blood loss (mL): 5 Blood products transfused: none Procedure in detail: With the patient under satisfactory general anesthesia in the modified dorsal lithotomy position, the perineum, vagina, and abdomen were prepped and draped for IUD removal and laparoscopic bilateral salpingectomy. A pre-surgical safety time-out was then taken in accordance with [facility] protocols. The umbilicus was then infiltrated with 0.5% Marcaine with epinephrine and 1 cm vertical incision was made in the inferior aspect of the umbilicus. Veress needle was used to insufflate the abdomen with carbon dioxide and once appropriately insufflated, 5 mm bladeless trocar and sleeve were inserted through the incision. Proper placement of the sleeve was confirmed with laparoscopic visualization and insufflation of the abdomen continued. A 2nd and 3rd 5 mm laparoscopic port were placed in the right and left mid quadrants using a similar technique and using a 3 puncture technique, the abdomen and pelvis were visualized with the findings as noted above. The distal aspect of the left fallopian tube was then grasped with a grasping forceps and using a Power Seal device, fimbria ovarica was coagulated and divided the dissection using the Power Seal continuing across the mesosalpinx to the cornua where the base fallopian tube was coagulated and divided. The left fallopian tube was then removed through one of the ports and submitted pathologic specimen. Attention was then turned to the right adnexa with distal tube grasped with a grasping forcep. The Power Seal device was then used to coagulate fimbria ovarica and the dissection was carried across the mesosalpinx to the cornua where the fallopian tube on the right side was amputated at the cornua following coagulation proximal tube the Power Seal device. Pelvis was inspected and there were no abnormalities noted following bilateral salpingectomy. The pneumoperitoneum was then vented and the ports removed from the abdominal wall. Port incisions were then closed with 4-0 Monocryl using inverted interrupted stitches and skin glue was applied. Appropriate dressings were then applied, patient was awakened, and transferred to the PACU for a period of observation after having tolerated the procedure well. Complications: none Post-operative Condition: stable Disposition: PACU Plan for aftercare: Routine post-op care with follow-up scheduled for two weeks postop.
[2022-04-24] MEDS: ACETAMINOPHEN IV 1,000 MG/100 ML VIAL 400 MG IV (15:50)
--- NOTE | 2022-04-24 16:10 | SUR.OPER ---
Lithotomy on padded OR bed, head on pillow, arms secured on padded arm boards at <90 degrees abduction. Legs secured in padded yellow fins stirrups.
--- NOTE | 2022-04-24 16:11 | SUR.OPER ---
Supine on padded OR bed, head on pillow, arms padded and tucked at sides, legs uncrossed, safety belt at thigh, tape over blanket over lower legs .
[2022-04-24] MEDS: BUPIVACAINE 0.5% W/ EPI (PF) 30 ML VIAL INJ (16:30)
[2022-04-24 16:55] VITALS: BP 117/65; PULSE 85; RESP 18; TEMP 36.3; O2SAT 100
[2022-04-24 16:59] VITALS: BP 125/77; PULSE 84; RESP 16; O2SAT 99
[2022-04-24 17:04] VITALS: BP 126/54; PULSE 67; RESP 16; O2SAT 99
[2022-04-24] MEDS: OXYCODONE IR 5 MG TABLET PO (17:14)
[2022-04-24 17:19] VITALS: BP 125/77; PULSE 74; RESP 18; TEMP 36.1; O2SAT 98
== END 2022-04-24 17:42 | disposition home or self-care (01) ==
PROVIDERS: PCP Family Medicine; Referring Provider Obstetrics & Gynecology; Visit Provider Obstetrics & Gynecology
PROC: 0UT74ZZ Resection of Bilateral Fallopian Tubes, Percutaneous Endoscopic Approach (ICD-10-PCS; CPT 58661; principal; 2022-04-24 13:30)
DX: Z30.2 Encounter for sterilization (principal); Z20.822 Contact with and (suspected) exposure to COVID-19
CPT/HCPCS: 58661; 81025; 87635; J0131; J1100; J1885; J2250; J2405; J2704; J3010